=== PATIENT | male | born 1965 | race African-American/Black ===

== ENCOUNTER 2018-12-22 06:06 | Day surgery (SDC) | payer OTHER ==
[2018-12-22] MEDS ORDERED: NACL 0.9% 500 ML 500 ML IV SCH (07:00)
== END 2018-12-22 06:45 | disposition home or self-care (01) ==
LOC: CATHLABREC 06:06
PROVIDERS: ATTEND Internal Medicine
DX: I20.8 Other forms of angina pectoris (principal); Z53.8 Procedure and treatment not carried out for other reasons; Z95.1 Presence of aortocoronary bypass graft
CPT/HCPCS: J7040

== ENCOUNTER 2019-06-13 13:08 | Inpatient (IN) | payer OTHER ==
--- NOTE | 2019-06-13 13:27 | Event Note ---
ED Screening Note Date of service: 06/13/19 Time: 13:24 ED Screening Note: 53 y o male with PMH of HTN and Hyperlipidimia with presents feeling of left sided weakness and difficulty with his speaking 7 am this morning, pt states he went to work but not feeling better. This initial assessment/diagnostic orders/clinical plan/treatment(s) is/are subject to change based on patients health status, clinical progression and re- assessment by fellow clinical providers in the ED. Further treatment and workup at subsequent clinical providers discretion. Patient/guardian urged not to elope from the ED as their condition may be serious if not clinically assessed and managed. Initial orders include: protocol ordered CT scan
[2019-06-13 13:55] LABS: Basophils # (Auto) 0.1 K/mm3 (0.0-0.1); Eosinophils # (Auto) 0.2 K/mm3 (0.0-0.4); Eosinophils % (Auto) 2.1 % (0.0-4.3); Monocytes % (Auto) 10.4 % (0.0-7.3)
[2019-06-13 14:08] LABS: INR 0.87 (0.87-1.13)
[2019-06-13 14:09] LABS: Thrombin Time 16.5 Sec. (15.1-19.6)
[2019-06-13 14:11] LABS: Creatine Kinase MB 2.1 ng/mL (0.0-4.0)
[2019-06-13] MEDS ORDERED: NITROSTAT SL PRN (14:19)
[2019-06-13] MEDS ORDERED: PEPCID IV ONE (14:19)
--- NOTE | 2019-06-13 14:20 | Emergency Department Report ---
ED Neuro Deficit HPI - General Chief Complaint: Neuro Symptoms/Deficit Stated Complaint: (L) SIDE NUMB Time Seen by Provider: 06/13/19 13:23 Source: patient, RN notes reviewed, old records reviewed Mode of arrival: Ambulatory Limitations: No Limitations - History of Present Illness Initial Comments: Primary care DrHumaira: Patient states he does not have one Cardiology: Dr. Karan Osorio Past medical history: Aneurysm of ascending order, coronary artery disease, exertional angina, obesity, CABG 2, stented coronary artery, high cholesterol, hypertension The patient is a 53-year-old gentleman. The patient is not known to this provider previously. The patient presents to the ER today with primary complaint of not speaking right. He reports waking up, and noticing that he was not able to pronounce words slightly he normally does. This is painless, not associated with neck or tongue discomfort. It is constant, does not radiate anywhere. He also endorses intermittent left-sided numbness, which has been present for years, ever since repair of a AAA/CABG. He denies recent trauma. He also complains of nonspecific shortness of breath. This is chronic, painless, and worsens with physical exertion and decreases with rest. There is no posterior leg pain. There is no posterior leg swelling. The patient endorses epigastric burning. This is not sharp or tearing, and it does not radiate to the back, arms or neck. The epigastric burning is intermittent, does not radiate anywhere, and he believes it started today, but he is not sure. -: This morning Location: speech, left arm, left leg Presenting Symptoms: Present: Unable to Speak Clearly. Absent: Sudden, Severe Headache, Blurred/Loss of Vision, Facial Droop/Numbness, Altered Mental Status History of same: No Place: home Severity: mild Quality: numb Improves With: none Worsens With: none On Anticoagulants: Yes - Related Data Allergies/Adverse Reactions: Allergies Allergy/AdvReac Type Severity Reaction Status Date / Time No Known Allergies Allergy Unverified 12/22/18 06:07 ED Review of Systems ROS: Stated complaint: (L) SIDE NUMB Other details as noted in HPI Constitutional: denies: fever Eyes: denies: eye discharge ENT: denies: epistaxis Respiratory: shortness of breath. denies: cough Cardiovascular: denies: syncope Gastrointestinal: denies: nausea, vomiting Genitourinary: denies: dysuria Musculoskeletal: denies: back pain Skin: denies: lesions Neurological: numbness, paresthesias ED Past Medical Hx - Past Medical History Previous Medical History?: Yes Additional medical history: "heart problem" - Surgical History Past Surgical History?: Yes Hx Open Heart Surgery: Yes - Social History Smoking Status: Former Smoker Substance Use Type: Alcohol ED Neuro Physical Exam - General Limitations: No Limitations General appearance: alert, in no apparent distress Suspected Stroke: No - Head Head exam: Present: atraumatic, normocephalic - Eye Eye exam: Present: normal appearance, EOMI, other (visual acuity intact to finger counting and color perception at close distance.). Absent: nystagmus - ENT ENT exam: Present: normal exam, normal orophraynx, mucous membranes moist, normal external ear exam - Neck Neck exam: Present: normal inspection, full ROM. Absent: tenderness, meningismus - Respiratory Respiratory exam: Present: normal lung sounds bilaterally. Absent: respiratory distress - Cardiovascular Cardiovascular Exam: Present: regular rate, normal rhythm, normal heart sounds. Absent: bradycardia, tachycardia, irregular rhythm, systolic murmur, diastolic murmur, rubs, gallop - GI/Abdominal GI/Abdominal exam: Present: soft. Absent: distended, tenderness, guarding, rebound, rigid, pulsatile mass - Rectal Rectal exam: Present: deferred - Extremities Exam Extremities exam: Present: normal inspection, full ROM, other (2+ pulses noted in the bilateral upper, lower extremities. Compartments soft. No long bony tenderness. The pelvis is stable.). Absent: pedal edema, joint swelling, calf tenderness - Back Exam Back exam: Present: normal inspection, full ROM. Absent: tenderness, CVA tenderness (R), CVA tenderness (L), paraspinal tenderness, vertebral tenderness - Neurological Exam Neurological exam: Present: alert, oriented X3, normal gait, other (Extraocular movements intact. Tongue midline. No facial droop. Facial sensation intact to light touch in the V1, V2, V3 distribution bilaterally. 5 and 5 strength in 4 extremities.. Sensation is intact to light touch in 4 extremities.). Absent: motor sensory deficit - NIHSS Assessment Interval: Baseline 1a. Level of Consciousness: alert/keenly responsive 1b. LOC Questions: answers both correctly 1c. LOC Commands: performs tasks correctly 2. Best Gaze: normal 3. Visual: no visual loss 4. Facial Palsy: normal symmetrical movement 5b. Motor Arm Right: no drift 5a. Motor Arm Left: no drift 6a. Motor Leg Left: no drift 6b. Motor Leg Right: no drift 7. Limb Ataxia: absent 8. Sensory: normal 9. Best Language: no aphasia 10. Dysarthria: mild/moderate dysarthria 11. Extinction/Inattention: no abnormality Total Score: 1 Stroke Severity: Minor Stroke - Psychiatric Psychiatric exam: Present: normal affect, normal mood - Skin Skin exam: Present: warm, dry, intact, normal color. Absent: rash ED Course Vital Signs 06/13/19 06/13/19 06/13/19 13:18 14:04 15:30 Temperature 98.4 F 98.6 F Pulse Rate 69 66 80 Respiratory 18 16 16 Rate Blood Pressure 195/85 Blood Pressure 156/77 167/84 [Left] O2 Sat by Pulse 98 100 100 Oximetry - Reevaluation(s) Reevaluation #1: 06/13/19 16:36 CT scan of the brain suggests a subacute basal ganglia infarct without evidence of hemorrhage. Hospital physician is informed. - Lab Data Result diagrams: 06/13/19 13:30 06/13/19 14:54 Lab Results 06/13/19 06/13/19 06/13/19 Range/Units 13:30 13:30 13:30 WBC 9.7 (4.5-11.0) K/mm3 RBC 7.34 H (3.65-5.03) M/mm3 Hgb 15.7 H (11.8-15.2) gm/dl Hct 50.2 H (35.5-45.6) % MCV 68 L (84-94) fl MCH 21 L (28-32) pg MCHC 31 L (32-34) % RDW 17.3 H (13.2-15.2) % Plt Count 210 (140-440) K/mm3 Lymph % (Auto) 23.5 (13.4-35.0) % [place] % (Auto) 10.4 H (0.0-7.3) % Eos % (Auto) 2.1 (0.0-4.3) % Baso % (Auto) 0.7 (0.0-1.8) % Lymph # 2.3 (1.2-5.4) K/mm3 [place] # 1.0 H (0.0-0.8) K/mm3 Eos # 0.2 (0.0-0.4) K/mm3 Baso # 0.1 (0.0-0.1) K/mm3 Seg Neutrophils % 64.0 (40.0-70.0) % Seg Neutrophils # 6.2 (1.8-7.7) K/mm3 PT 11.6 L (12.2-14.9) Sec. INR 0.87 (0.87-1.13) APTT 29.0 (24.2-36.6) Sec. Thrombin Time 16.5 (15.1-19.6) Sec. Sodium (137-145) mmol/L Potassium (3.6-5.0) mmol/L Chloride (98-107) mmol/L Carbon Dioxide (22-30) mmol/L Anion Gap mmol/L BUN (9-20) mg/dL Creatinine (0.8-1.5) mg/dL Estimated GFR ml/min BUN/Creatinine Ratio % Glucose (75-100) mg/dL Calcium (8.4-10.2) mg/dL Total Creatine Kinase 112 (55-170) units/L CK-MB (CK-2) 2.1 (0.0-4.0) ng/mL CK-MB (CK-2) Rel Index 1.8 (0-4) Troponin T < 0.010 (0.00-0.029) ng/mL 06/13/19 Range/Units 14:54 WBC (4.5-11.0) K/mm3 RBC (3.65-5.03) M/mm3 Hgb (11.8-15.2) gm/dl Hct (35.5-45.6) % MCV (84-94) fl MCH (28-32) pg MCHC (32-34) % RDW (13.2-15.2) % Plt Count (140-440) K/mm3 Lymph % (Auto) (13.4-35.0) % [place] % (Auto) (0.0-7.3) % Eos % (Auto) (0.0-4.3) % Baso % (Auto) (0.0-1.8) % Lymph # (1.2-5.4) K/mm3 [place] # (0.0-0.8) K/mm3 Eos # (0.0-0.4) K/mm3 Baso # (0.0-0.1) K/mm3 Seg Neutrophils % (40.0-70.0) % Seg Neutrophils # (1.8-7.7) K/mm3 PT (12.2-14.9) Sec. INR (0.87-1.13) APTT (24.2-36.6) Sec. Thrombin Time (15.1-19.6) Sec. Sodium 138 (137-145) mmol/L Potassium 4.2 (3.6-5.0) mmol/L Chloride 96.2 L (98-107) mmol/L Carbon Dioxide 29 (22-30) mmol/L Anion Gap 17 mmol/L BUN 24 H (9-20) mg/dL Creatinine 1.2 (0.8-1.5) mg/dL Estimated GFR > 60 ml/min BUN/Creatinine Ratio 20 % Glucose 296 H (75-100) mg/dL Calcium 9.8 (8.4-10.2) mg/dL Total Creatine Kinase (55-170) units/L CK-MB (CK-2) (0.0-4.0) ng/mL CK-MB (CK-2) Rel Index (0-4) Troponin T (0.00-0.029) ng/mL - EKG Data -: EKG Interpreted by Id EKG shows normal: sinus rhythm Rate: normal 06/13/19 16:14 This is a sinus rhythm, with frequent sinus positive, premature atrial con tractions, normal axis, QTC prolonged, high left ventricular voltage, the EKG is abnormal, the EKG is not consistent with ST elevation myocardial infarction. - Radiology Data Radiology results: pending, report reviewed, image reviewed X-ray of the chest interpreted as negative for acute disease. Noncontrast CT scan of the brain: - Medical Decision Making Differential diagnosis, including but not limited to: Stroke, cervical radic ulopathy, GERD, gastritis, hiatal hernia, acute coronary syndrome, pneumonia, obstructive sleep apnea Assessment and plan: 53-year-old gentleman with multiple complaints Complaint #1, dysarthria: Present upon waking up. GCS of 15. NIH score of 1. Not a TPA candidate given low NIH score, and waking up with symptoms, last known well time last night. Seen and evaluated by consulting stroke neurology, Dr. Chau, who agrees with the above, and agrees with plan for admission. Exam and history are not consistent with large vessel occlusion, therefore, emergent angiogram of the head and neck is not indicated at this time. Complaint #2, left upper, left lower extremity numbness. No motor deficits present on exam. This is chronic since reported history of cardiac surgery. No indication of epidural compression syndrome at this time. This can be managed expectantly, and does not require emergent workup or evaluation. In the ER, has appropriate strength, sensation, and downgoing reflexes. Complaint #3, epigastric burning and shortness of breath, shortness of breath reportedly chronic, epigastric burning is new Troponin is negative. EKG abnormal, but not consistent with ST elevation myocardial infarction. Not tachycardic, not hypoxic, no pulmonary embolism or DVT risk factors, low risk by well's criteria. Has equal pulses in the upper, lower extremities, x-ray of the chest is reviewed and appreciated, this is unlikely to be aortic disease. May benefit from inpatient cardiac risk stratification. Patient's symptoms will be treated. The case is presented to the Hospital physician, Dr. Silviano Mccord , who accepts to his service - Core Measures Measure Exclusions: not indicated - Thrombolytic Inclusion/Exclusion Thrombolytic Exclusion Criteria: Symptom Onset > 3 Hours Critical care attestation.: If time is entered above; I have spent that time in minutes in the direct care of this critically ill patient, excluding procedure time. ED Disposition Clinical Impression: Dysarthria, Left sided numbness, Dyspnea, Epigastric burning sensation Disposition: OP ADMIT IP TO THIS HOSP Is pt being admited?: Yes Does the pt Need Aspirin: Yes Condition: Good Referrals: PRIMARY CARE, [Primary Care Provider] - 3-5 Days
[2019-06-13 14:25] LABS: Hematocrit 50.2 % (35.5-45.6); Hemoglobin 15.7 gm/dl (11.8-15.2); Mean Corpuscular HGB Conc 31 % (32-34); Mean Corpuscular Volume 68 fl (84-94); Platelet Count 210 K/mm3 (140-440); Red Blood Count 7.34 M/mm3 (3.65-5.03); Red Cell Distribution Width 17.3 % (13.2-15.2)
[2019-06-13 14:26] LABS: Basophils % (Auto) 0.7 % (0.0-1.8); Lymphocytes # (Auto) 2.3 K/mm3 (1.2-5.4); Lymphocytes % (Auto) 23.5 % (13.4-35.0)
--- NOTE | 2019-06-13 14:40 | Emergency Department Report ---
ED Neuro Deficit HPI - General Chief Complaint: Neuro Symptoms/Deficit Stated Complaint: (L) SIDE NUMB Time Seen by Provider: 06/13/19 13:23 Source: patient Mode of arrival: Ambulatory Limitations: No Limitations - History of Present Illness Initial Comments: [facility] Date of service: 06/13/2019 Impression: 53 year old male who presents with difficulty speaking and left side numbness. Some symptoms are chronic and dysarthria was new upon waking today. Symptoms may be due to stroke vs metabolic or infectious encephalopathy Not a tpa candidate due to: LSN more than 4.5 hours prior arrival Does not meet LVO screening criteria (no aphasia, neglect, gaze deviation, dense hemiparesis, or visual field deficits on exam), therefore advanced imaging is not indicated. Comments: Door Time: 13:08 [employer] contacted: 14:21 [employer] at bedside: 14:26 NIHSS assessment start time (time the consultation begins): Last known well time (LKW): 06/12/2019 Recommendations: Start antiplatelet if no obvious contraindication Stroke protocol admission/ orderset suggested with placement on stroke floor tele monitoring Bedside swallow evaluation HOB less than 30 degrees IV Fluid hydration with NS Euglycemia avoid hyperthermia, PRN acetaminophen dvt ppx Consider inpatient neurology consultation Discussed with ED MD Please call with questions CC: Stroke alert History of Present Illness Patient is a53 year old male with an extensive cardiac history who presented to the hospital because he woke up with dysarthria. Patient also has chronic numbness on the left. Patient was also complaining of shortness of breath as well. 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 Cranial Nerves: Pupils: Equal round and reactive to light Extraocular movements: Intact in all cardinal gaze Ptosis: Absent Visual mccoy: Intact to finger counting Facial sensation: Intact to pin and light touch Facial movements: Intact and symmetric Motor Exam: No drift Tremor/Abnormal Movements: Resting tremor: Absent Intention tremor: Absent Postural tremor: Absent Sensory Exam: Light touch: Intact Pinprick: Intact Coordination: Finger to nose: Intact Heel to jacob: Intact NIHSS score: 1 Medical Decision Making: - Extensive number of diagnosis or management options are considered above. - Extensive amount of complex data reviewed. - High risk of complication and/or morbidity or mortality are associated with differential diagnostic considerations above. - There may be Uncertain outcome and increased probability of prolonged functional impairment or high probability of severe prolonged functional impairment associated with some of these differential diagnosis. Medical Data Reviewed: 1.Data reviewed include clinical labs, radiology,Medical Tests; 2.Tests results discussed w/performing or interpreting physician; 3.Obtaining/reviewing old medical records; 4.Obtaining case history from another source; 5.Independent review of image, tracing or specimen. Patient was informed the Neurology Consult would happen via TeleHealth consult by way of interactive audio and video telecommunications and consented to receiving care in this manner. - Related Data Allergies/Adverse Reactions: Allergies Allergy/AdvReac Type Severity Reaction Status Date / Time No Known Allergies Allergy Unverified 12/22/18 06:07 ED Review of Systems ROS: Stated complaint: (L) SIDE NUMB Other details as noted in HPI ED Past Medical Hx - Past Medical History Previous Medical History?: Yes Additional medical history: "heart problem" - Surgical History Past Surgical History?: Yes Hx Open Heart Surgery: Yes - Social History Smoking Status: Former Smoker Substance Use Type: Alcohol ED Neuro Physical Exam - General Limitations: No Limitations Suspected Stroke: No - NIHSS Assessment Interval: Baseline 1a. Level of Consciousness: alert/keenly responsive 1b. LOC Questions: answers both correctly 1c. LOC Commands: performs tasks correctly 2. Best Gaze: normal 3. Visual: no visual loss 4. Facial Palsy: normal symmetrical movement 5b. Motor Arm Right: no drift 5a. Motor Arm Left: no drift 6a. Motor Leg Left: no drift 6b. Motor Leg Right: no drift 7. Limb Ataxia: absent 8. Sensory: normal 9. Best Language: no aphasia 10. Dysarthria: mild/moderate dysarthria 11. Extinction/Inattention: no abnormality Total Score: 1 Stroke Severity: Minor Stroke ED Course Vital Signs 06/13/19 06/13/19 13:18 14:04 Temperature 98.4 F 98.6 F Pulse Rate 69 66 Respiratory 18 16 Rate Blood Pressure 195/85 Blood Pressure 156/77 [Left] O2 Sat by Pulse 98 100 Oximetry - Lab Data Result diagrams: 06/13/19 13:30 Lab Results 06/13/19 06/13/19 06/13/19 Range/Units 13:30 13:30 13:30 WBC 9.7 (4.5-11.0) K/mm3 RBC 7.34 H (3.65-5.03) M/mm3 Hgb 15.7 H (11.8-15.2) gm/dl Hct 50.2 H (35.5-45.6) % MCV 68 L (84-94) fl MCH 21 L (28-32) pg MCHC 31 L (32-34) % RDW 17.3 H (13.2-15.2) % Plt Count 210 (140-440) K/mm3 Lymph % (Auto) 23.5 (13.4-35.0) % [place] % (Auto) 10.4 H (0.0-7.3) % Eos % (Auto) 2.1 (0.0-4.3) % Baso % (Auto) 0.7 (0.0-1.8) % Lymph # 2.3 (1.2-5.4) K/mm3 [place] # 1.0 H (0.0-0.8) K/mm3 Eos # 0.2 (0.0-0.4) K/mm3 Baso # 0.1 (0.0-0.1) K/mm3 Seg Neutrophils % 64.0 (40.0-70.0) % Seg Neutrophils # 6.2 (1.8-7.7) K/mm3 PT 11.6 L (12.2-14.9) Sec. INR 0.87 (0.87-1.13) APTT 29.0 (24.2-36.6) Sec. Thrombin Time 16.5 (15.1-19.6) Sec. Total Creatine Kinase 112 (55-170) units/L CK-MB (CK-2) 2.1 (0.0-4.0) ng/mL CK-MB (CK-2) Rel Index 1.8 (0-4) Troponin T < 0.010 (0.00-0.029) ng/mL Critical care attestation.: If time is entered above; I have spent that time in minutes in the direct care of this critically ill patient, excluding procedure time. ED Disposition Clinical Impression: Dysarthria Disposition: OP ADMIT IP TO THIS HOSP Is pt being admited?: Yes Does the pt Need Aspirin: Yes Condition: Stable Referrals: PRIMARY CARE,MD [Primary Care Provider] - 3-5 Days
--- NOTE | 2019-06-13 15:24 | XRay Report ---
CHEST 1 VIEW 3:01 PM INDICATION / CLINICAL INFORMATION: Dyspnea. COMPARISON: 05/18/2012. FINDINGS: SUPPORT DEVICES: None. HEART / MEDIASTINUM: Median sternotomy. The heart size and pulmonary vasculature are normal. LUNGS / PLEURA: No significant pulmonary or pleural abnormality. No pneumothorax. ADDITIONAL FINDINGS: No significant additional findings. IMPRESSION: No acute findings. Signer Name: Rell Art MD Signed: 06/13/2019 3:20 PM Workstation Name: [id number]
[2019-06-13 15:25] LABS: BUN/Creatinine Ratio 20; Blood Urea Nitrogen 24 mg/dL (9-20); Calcium 9.8 mg/dL (8.4-10.2); Hemolysis Index 2
[2019-06-13] MEDS ORDERED: BABY ASPIRIN PO ONE (15:35)
--- NOTE | 2019-06-13 16:40 | History and Physical Report ---
History of Present Illness Date of examination: 06/13/19 Date of admission: 06/13/19 Chief complaint: Slurred speech since AM History of present illness: 53-year-old gentleman presents to the ER today with primary complaint of not speaking right. He reports waking up, and noticing that he was not able to pronounce words as he normally does. He also c/o of intermittent left-sided numbness, which has been present for years, ever since repair of a AAA/CABG. He denies recent trauma. He also complains of nonspecific shortness of breath. No chest pain.No orthopnea.No fever or chills.No recent travel. Past Medical History HTN CAD Surgical History Past Surgical History?: Yes Hx Open Heart Surgery: Yes Family History Htn Social History Smoking Status: Former Smoker Substance Use Type: Alcohol Review of Systems ROS: Stated complaint: (L) SIDE NUMB Other details as noted in HPI Constitutional: denies: fever Eyes: denies: eye discharge ENT: denies: epistaxis Respiratory: shortness of breath. denies: cough Cardiovascular: denies: syncope Gastrointestinal: denies: nausea, vomiting Genitourinary: denies: dysuria Musculoskeletal: denies: back pain Skin: denies: lesions Neurological: numbness, paresthesias Medications and Allergies Allergies Allergy/AdvReac Type Severity Reaction Status Date / Time No Known Allergies Allergy Unverified 12/22/18 06:07 Home Medications Medication Instructions Recorded Confirmed Last Taken Type AtorvaSTATin [Lipitor] 80 mg PO QHS 06/13/19 06/13/19 Unknown History Olmesartan/Hydrochlorothiazide 20 tab PO ONCE 06/13/19 06/13/19 Unknown History [Olmesartan-Hctz 40-12.5 mg Tab] Active Meds: Active Medications Nitroglycerin (Nitrostat) 0.4 mg SL .Q5MIN PRN PRN Reason: Chest Pain Exam - Constitutional Vitals: Temp Pulse Resp BP Pulse Ox 98.6 F 80 16 167/84 100 06/13/19 14:04 06/13/19 15:30 06/13/19 15:30 06/13/19 15:30 06/13/19 15:30 Results - Labs CBC & Chem 7: 06/13/19 13:30 06/13/19 14:54 Labs: Laboratory Last Values WBC 9.7 K/mm3 (4.5-11.0) 06/13/19 13:30 RBC 7.34 M/mm3 (3.65-5.03) H 06/13/19 13:30 Hgb 15.7 gm/dl (11.8-15.2) H 06/13/19 13:30 Hct 50.2 % (35.5-45.6) H 06/13/19 13:30 MCV 68 fl (84-94) L 06/13/19 13:30 MCH 21 pg (28-32) L 06/13/19 13:30 MCHC 31 % (32-34) L 06/13/19 13:30 RDW 17.3 % (13.2-15.2) H 06/13/19 13:30 Plt Count 210 K/mm3 (140-440) 06/13/19 13:30 Lymph % (Auto) 23.5 % (13.4-35.0) 06/13/19 13:30 [place] % (Auto) 10.4 % (0.0-7.3) H 06/13/19 13:30 Eos % (Auto) 2.1 % (0.0-4.3) 06/13/19 13:30 Baso % (Auto) 0.7 % (0.0-1.8) 06/13/19 13:30 Lymph # 2.3 K/mm3 (1.2-5.4) 06/13/19 13:30 [place] # 1.0 K/mm3 (0.0-0.8) H 06/13/19 13:30 Eos # 0.2 K/mm3 (0.0-0.4) 06/13/19 13:30 Baso # 0.1 K/mm3 (0.0-0.1) 06/13/19 13:30 Seg Neutrophils % 64.0 % (40.0-70.0) 06/13/19 13:30 Seg Neutrophils # 6.2 K/mm3 (1.8-7.7) 06/13/19 13:30 PT 11.6 Sec. (12.2-14.9) L 06/13/19 13:30 INR 0.87 (0.87-1.13) 06/13/19 13:30 APTT 29.0 Sec. (24.2-36.6) 06/13/19 13:30 16.5 Sec. (15.1-19.6) 06/13/19 13:30 Sodium 138 mmol/L (137-145) 06/13/19 14:54 Potassium 4.2 mmol/L (3.6-5.0) 06/13/19 14:54 Chloride 96.2 mmol/L (98-107) L 06/13/19 14:54 Carbon Dioxide 29 mmol/L (22-30) 06/13/19 14:54 17 mmol/L 06/13/19 14:54 BUN 24 mg/dL (9-20) H 06/13/19 14:54 1.2 mg/dL (0.8-1.5) 06/13/19 14:54 Estimated GFR > 60 ml/min 06/13/19 14:54 20 % 06/13/19 14:54 Glucose 296 mg/dL (75-100) H 06/13/19 14:54 Calcium 9.8 mg/dL (8.4-10.2) 06/13/19 14:54 112 units/L (55-170) 06/13/19 13:30 CK-MB (CK-2) 2.1 ng/mL (0.0-4.0) 06/13/19 13:30 CK-MB (CK-2) Rel Index 1.8 (0-4) 06/13/19 13:30 < 0.010 ng/mL (0.00-0.029) 06/13/19 13:30 Short CBC 06/13/19 Range/Units 13:30 WBC 9.7 (4.5-11.0) K/mm3 Hgb 15.7 H (11.8-15.2) gm/dl Hct 50.2 H (35.5-45.6) % Plt Count 210 (140-440) K/mm3 BMP 06/13/19 14:54 Sodium 138 Potassium 4.2 Chloride 96.2 L Carbon Dioxide 29 BUN 24 H Creatinine 1.2 Glucose 296 H Calcium 9.8 Cardiac Enzymes 06/13/19 Range/Units 13:30 Total Creatine Kinase 112 (55-170) units/L CK-MB (CK-2) 2.1 (0.0-4.0) ng/mL Troponin T < 0.010 (0.00-0.029) ng/mL - Imaging and Cardiology EKG: report reviewed (NSR with frequent pvc's) Chest x-ray: report reviewed Imaging and Cardiology: CT HEAD IMPRESSION: Subacute infarction in the right basal ganglia; I do not see hemorrhagic changes. I have discussed these findings with ER physician at 3:30 [place] daylight savings time. Assessment and Plan Advance Directives: Yes (FC) VTE prophylaxis?: Chemical Plan of care discussed with patient/family: Yes - Patient Problems (1) Acute CVA (cerebrovascular accident) Current Visit: Yes Status: Acute Plan to address problem: CVA versus TIA CVA w/u Neuro consult MRI/MRA/REcho/CDS Statins/aSa (2) HTN (hypertension) Current Visit: Yes Status: Chronic Qualifiers: Hypertension type: essential hypertension Qualified Code(s): I10 - Essential (primary) hypertension Plan to address problem: VCont Benicar/substitute (3) CAD (coronary artery disease) Current Visit: Yes Status: Chronic Qualifiers: Coronary Disease-Associated Artery/Lesion type: bypass graft [place] vs. transplanted heart: [place] heart Plan to address problem: On ASA (4) DVT prophylaxis Current Visit: Yes Status: Acute Plan to address problem: On Ovenox and GI prophylaxis
--- NOTE | 2019-06-13 17:03 | Cat Scan Report ---
CT head/brain wo con INDICATION: Stroke symptoms. TECHNIQUE: Routine CT head without contrast. Sagittal and coronal reformatted images were obtained. A ll CT scans at this location are performed using CT dose reduction for ALARA by means of automated ex posure control. COMPARISON: None. FINDINGS: BRAIN / INTRACRANIAL CONTENTS: I do not see hemorrhage (parenchymal, subarachnoid, epidural or subdur al) or hemorrhagic lesion. Lacune is seen in the right basal ganglia extending from the right putamen towards the body of right caudate. This infarction has slightly higher CT density than CSF. I am carmita ble to determine the age but this appears to be recent. I do not see hemorrhagic changes. I do not se e CT findings to suggest acute territorial infarction. In these images, I do not see findings to sugg est torsion of internal carotid artery terminus middle cerebral artery. Few of the middle cerebral ar robby territory from the right sylvian fissure has increased CT density compared to the left side. No acute hemorrhage, mass effect, midline shift, hydrocephalus, or acute, large territorial infarct. No chronic infarct or focal atrophy. Normal brain volume and ventricular/sulcal size for age. No sign ificant white matter abnormality. CRANIOCERVICAL JUNCTION: No significant abnormality. ORBITS: No significant abnormality of visualized orbits. SINUSES / MASTOIDS: No significant abnormality of the visualized paranasal sinuses or mastoid air nicolasa ls. ADDITIONAL FINDINGS: None. IMPRESSION: Subacute infarction in the right basal ganglia; I do not see hemorrhagic changes. I have discussed these findings with ER physician at 3:30 Central daylight savings time. Signer Name: Melania Davis MD Signed: 06/13/2019 4:58 PM Workstation Name: [id number]
[2019-06-14] MEDS ORDERED: REGLAN IV PRN (06:39)
[2019-06-14] MEDS ORDERED: TYLENOL PO PRN (06:39)
[2019-06-14] MEDS ORDERED: MILK OF MAGNESIA PO PRN (06:39)
[2019-06-14] MEDS ORDERED: DILAUDID IV PRN (06:39)
[2019-06-14] MEDS ORDERED: ZOFRAN IV PRN (06:39)
[2019-06-14] MEDS ORDERED: SODIUM CHLORIDE FLUSH SYRINGE 10 ML IV PRN ×2 (06:39→06:42)
[2019-06-14] MEDS ORDERED: PERCOCET 5/325 PO PRN (06:39)
[2019-06-14] MEDS ORDERED: OLMESARTAN PO SCH (06:45)
[2019-06-14] MEDS ORDERED: HYDROCHLOROTHIAZIDE PO SCH (06:45)
[2019-06-14 07:39] LABS: Basophils % (Auto) 0.5 % (0.0-1.8); Eosinophils # (Auto) 0.2 K/mm3 (0.0-0.4); Hematocrit 47.5 % (35.5-45.6); Hemoglobin 15.1 gm/dl (11.8-15.2); Lymphocytes # (Auto) 2.3 K/mm3 (1.2-5.4); Lymphocytes % (Auto) 30.6 % (13.4-35.0); Mean Corpuscular HGB Conc 32 % (32-34); Monocytes # (Auto) 0.8 K/mm3 (0.0-0.8); Monocytes % (Auto) 10.5 % (0.0-7.3); Platelet Count 190 K/mm3 (140-440); Red Blood Count 6.93 M/mm3 (3.65-5.03); Red Cell Distribution Width 16.4 % (13.2-15.2)
[2019-06-14 07:51] LABS: Mean Corpuscular Volume 69 fl (84-94)
[2019-06-14 08:01] LABS: Alanine Aminotransferase 27 units/L (7-56); Albumin 3.5 g/dL (3.9-5); BUN/Creatinine Ratio 19; Blood Urea Nitrogen 23 mg/dL (9-20); Calcium 9.2 mg/dL (8.4-10.2); Hemolysis Index 9
--- NOTE | 2019-06-14 08:09 | Progress Note ---
Assessment and Plan Assessment and plan: Patient is a 53 yo man with a history of hypertension, AAA, dyslipidemia and CAD s/p CABG and PCI who presented to [facility] ED with left sided weakness/numbness and dyarthria. Teleneurologist used and wrote "Not a tpa candidate due to: LSN more than 4.5 hours prior arrival, Does not meet LVO screening criteria (no aphasia, neglect, gaze deviation, dense hemiparesis, or visual field deficits on exam), therefore advanced imaging is not indicated." * CT HEAD IMPRESSION: Subacute infarction in the right basal ganglia; I do not see hemorrhagic changes. Acute CVA (cerebrovascular accident) Neuro consult MRI/MRA/Echo/Us carotid Treat with Statins/aSa HTN (hypertension) VCont Benicar/substitute CAD (coronary artery disease) On ASA New onset DM, A1c 13.3 treat with ssi, counseling DVT prophylaxis On lovenox and GI prophylaxis History Interval history: Patient was seen and examined. Follow-up on current diagnosis of CVA with dysart hria. No overnight events reported to me. Patient denies any chest pain, shortness breath, nausea/vomiting or severe headaches. Imaging, nursing note, chart, labs and old chart reviewed. Discussed with patient. Hospitalist Physical - Physical exam Narrative exam: Gen: WDWN, NAD, Awake, Alert, Orientated HEENT: NCAT, EOMI, PERRL, OP Clear Neck: supple, no adenopathy, no thyromegaly, no JVD CVS/Heart: RRR, normal S1S2, pulses present bilaterally Chest/Lungs: CTA B, Symmetrical chest expansion, good air entry bilaterally GI/Abdomen: soft, NTND, good bowel sounds, no guarding or rebound /Bladder: no suprapubic tenderness, no CVA or paraspinal tenderness Extermity/Skin: no c/c/e, no obvious rash MSK: FROM x 4 Neuro: CN 2-12 grossly intact, dysarthria Psych: calm - Constitutional Vitals: Temp Pulse Resp BP Pulse Ox 98.7 F 64 20 109/56 86 06/14/19 04:05 06/13/19 23:50 06/14/19 04:05 06/14/19 04:05 06/14/19 04:05 Results - Labs CBC & Chem 7: 06/14/19 06:49 06/14/19 06:49 Labs: Laboratory Last Values WBC 7.6 K/mm3 (4.5-11.0) 06/14/19 06:49 RBC 6.93 M/mm3 (3.65-5.03) H 06/14/19 06:49 Hgb 15.1 gm/dl (11.8-15.2) 06/14/19 06:49 Hct 47.5 % (35.5-45.6) H 06/14/19 06:49 MCV 69 fl (84-94) L 06/14/19 06:49 MCH 22 pg (28-32) L 06/14/19 06:49 MCHC 32 % (32-34) 06/14/19 06:49 RDW 16.4 % (13.2-15.2) H 06/14/19 06:49 Plt Count 190 K/mm3 (140-440) 06/14/19 06:49 Lymph % (Auto) 30.6 % (13.4-35.0) 06/14/19 06:49 Hamilton % (Auto) 10.5 % (0.0-7.3) H 06/14/19 06:49 Eos % (Auto) 3.0 % (0.0-4.3) 06/14/19 06:49 Baso % (Auto) 0.5 % (0.0-1.8) 06/14/19 06:49 Lymph # 2.3 K/mm3 (1.2-5.4) 06/14/19 06:49 Hamilton # 0.8 K/mm3 (0.0-0.8) 06/14/19 06:49 Eos # 0.2 K/mm3 (0.0-0.4) 06/14/19 06:49 Baso # 0.0 K/mm3 (0.0-0.1) 06/14/19 06:49 Seg Neutrophils % 55.4 % (40.0-70.0) 06/14/19 06:49 Seg Neutrophils # 4.2 K/mm3 (1.8-7.7) 06/14/19 06:49 PT 11.6 Sec. (12.2-14.9) L 06/13/19 13:30 INR 0.87 (0.87-1.13) 06/13/19 13:30 APTT 29.0 Sec. (24.2-36.6) 06/13/19 13:30 16.5 Sec. (15.1-19.6) 06/13/19 13:30 Sodium 135 mmol/L (137-145) L 06/14/19 06:49 Potassium 3.6 mmol/L (3.6-5.0) 06/14/19 06:49 Chloride 95.3 mmol/L (98-107) L 06/14/19 06:49 Carbon Dioxide 26 mmol/L (22-30) 06/14/19 06:49 17 mmol/L 06/14/19 06:49 BUN 23 mg/dL (9-20) H 06/14/19 06:49 1.2 mg/dL (0.8-1.5) 06/14/19 06:49 Estimated GFR > 60 ml/min 06/14/19 06:49 19 % 06/14/19 06:49 Glucose 227 mg/dL (75-100) H 06/14/19 06:49 13.3 % (4-6) H 06/14/19 06:49 Calcium 9.2 mg/dL (8.4-10.2) 06/14/19 06:49 0.50 mg/dL (0.1-1.2) 06/14/19 06:49 AST 21 units/L (5-40) 06/14/19 06:49 ALT 27 units/L (7-56) 06/14/19 06:49 61 units/L (35-129) 06/14/19 06:49 112 units/L (55-170) 06/13/19 13:30 CK-MB (CK-2) 2.1 ng/mL (0.0-4.0) 06/13/19 13:30 CK-MB (CK-2) Rel Index 1.8 (0-4) 06/13/19 13:30 < 0.010 ng/mL (0.00-0.029) 06/13/19 13:30 7.4 g/dL (6.3-8.2) 06/14/19 06:49 3.5 g/dL (3.9-5) L 06/14/19 06:49 0.9 % 06/14/19 06:49 Active Medications - Current Medications Current Medications: Generic Name Dose Route Start Last Admin Trade Name Freq PRN Reason Stop Dose Admin Acetaminophen 650 mg 06/14/19 06:39 Tylenol PO Q4H PRN Pain MILD(1-3)/Fever >100.5/BARNES Aspirin 325 mg 06/14/19 10:00 Aspirin PO QDAY [facility] Atorvastatin Calcium 40 mg 06/14/19 22:00 Lipitor PO QHS [facility] Enoxaparin Sodium 40 mg 06/14/19 22:00 Lovenox SUB-Q QDAY@2200 [facility] Hydrochlorothiazide 12.5 mg 06/14/19 10:00 Hctz PO QDAY [facility] Hydromorphone HCl 0.5 mg 06/14/19 06:39 Dilaudid IV Q3H PRN Pain , Severe (7-10) Insulin Human Lispro 0 unit 06/14/19 07:30 Humalog SUB-Q [facility] Protocol Losartan Potassium 50 mg 06/14/19 10:00 Cozaar PO QDAY [facility] Magnesium Hydroxide 30 ml 06/14/19 06:39 Milk Of Magnesia PO Q4H PRN Constipation Metoclopramide HCl 10 mg 06/14/19 06:39 Reglan IV Q6H PRN Nausea And Vomiting Nitroglycerin 0.4 mg 06/13/19 14:19 Nitrostat SL .Q5MIN PRN Chest Pain Ondansetron HCl 4 mg 06/14/19 06:39 Zofran IV Q8H PRN Nausea And Vomiting Oxycodone/Acetaminophen 1 tab 06/14/19 06:39 Percocet 5/325 PO Q6H PRN Pain, Moderate (4-6) Sodium Chloride 10 ml 06/14/19 10:00 Sodium Chloride Flush Syringe 10 Ml IV BID [place] Sodium Chloride 10 ml 06/14/19 06:39 Sodium Chloride Flush Syringe 10 Ml IV PRN PRN LINE FLUSH Sodium Chloride 10 ml 06/14/19 06:42 Sodium Chloride Flush Syringe 10 Ml IV PRN PRN LINE FLUSH
--- NOTE | 2019-06-14 10:55 | Vascular Lab Report ---
"DUPLEX DOPPLER ULTRASOUND CAROTID, BILATERAL INDICATION: stroke. FINDINGS: RIGHT CAROTID: Small amount of atherosclerotic plaque. Right ICA peak systolic velocity: 66 cm/sec. Right Vertebral Artery: Antegrade flow. LEFT CAROTID: Small amount of atherosclerotic plaque. Left ICA peak systolic velocity: 71 cm/sec. Left Vertebral Artery: Antegrade flow. IMPRESSION: 1. Right Internal Carotid Artery: Less than 50% diameter stenosis. 2. Left Internal Carotid Artery: Less than 50% diameter stenosis. Velocity criteria are extrapolated from diameter data as defined by the Society of Radiologists in Ul trasound Consensus Conference, Radiology 2003; 229;340-346. Degree of Stenosis (%) || ICA PSV (cm/sec) || Plaque estimate (%) || ICA/CCA PSV Ratio Normal <125 None <2.0 <50 <125 <50 <2.0 50-69 125-230 50 2.0-4.0 70 but less than 100 >230 50 >4.0 Near occlusion High, low, or none visible variable Total occlusion None visible; no lumen N/A Signer Name: Calixto Dominguez MD Signed: 06/14/2019 10:51 AM Workstation Name: [id number]"
--- NOTE | 2019-06-14 11:18 | Consultation ---
History of Present Illness Consult date: 06/14/19 Reason for Consult: Possible stroke Chief complaint: Slurred speech, left sided weakness History of present illness: Patient is a 53-year-old man with a history of hypertension, hyperlipidemia, CAD status post CABG, AAA, diabetes mellitus. He is ended yesterday with onset of slurred speech and left-sided weakness which began upon waking up yesterday morning. He was last known normal the night before going to sleep. Patient was seen by telemetry neurology in the ER, and was not felt to be a TPA candidate as he was outside the window. Patient also had shortness of breath which was noted yesterday. This admission, was noted to have hemoglobin A1c of 13.3, and was newly diagnosed with diabetes mellitus. Past History Past Medical History: other (hypertension, hyperlipidemia, CAD status post CABG, AAA, diabetes mellitus) Past Surgical History: CABG Social history: lives with family, other (previous smoker, occasional call use) Family history: no significant family history Medications and Allergies Allergies Allergy/AdvReac Type Severity Reaction Status Date / Time No Known Allergies Allergy Unverified 12/22/18 06:07 Home Medications Medication Instructions Recorded Confirmed Last Taken Type AtorvaSTATin [Lipitor] 80 mg PO QHS 06/13/19 06/13/19 Unknown History Olmesartan/Hydrochlorothiazide 20 tab PO ONCE 06/13/19 06/13/19 Unknown History [Olmesartan-Hctz 40-12.5 mg Tab] Active Meds: Active Medications Acetaminophen (Tylenol) 650 mg PO Q4H PRN PRN Reason: Pain MILD(1-3)/Fever >100.5/BARNES Aspirin (Aspirin) 325 mg PO QDAY [place] Atorvastatin Calcium (Lipitor) 40 mg PO QHS [facility] Enoxaparin Sodium (Lovenox) 40 mg SUB-Q QDAY@2200 [place] Hydrochlorothiazide (Hctz) 12.5 mg PO QDAY [place] Hydromorphone HCl (Dilaudid) 0.5 mg IV Q3H PRN PRN Reason: Pain , Severe (7-10) Insulin Human Lispro (Humalog) 0 unit SUB-Q [facility] [place]; Protocol Losartan Potassium (Cozaar) 50 mg PO QDAY [place] Magnesium Hydroxide (Milk Of Magnesia) 30 ml PO Q4H PRN PRN Reason: Constipation Metoclopramide HCl (Reglan) 10 mg IV Q6H PRN PRN Reason: Nausea And Vomiting Nitroglycerin (Nitrostat) 0.4 mg SL .Q5MIN PRN PRN Reason: Chest Pain Ondansetron HCl (Zofran) 4 mg IV Q8H PRN PRN Reason: Nausea And Vomiting Oxycodone/Acetaminophen (Percocet 5/325) 1 tab PO Q6H PRN PRN Reason: Pain, Moderate (4-6) Sodium Chloride (Sodium Chloride Flush Syringe 10 Ml) 10 ml IV BID [place] Sodium Chloride (Sodium Chloride Flush Syringe 10 Ml) 10 ml IV PRN PRN PRN Reason: LINE FLUSH Review of Systems All systems: negative Cardiovascular: shortness of breath Respiratory: shortness of breath Neurological: weakness, change in speech Physical Examination - Vital Signs Vital Signs: Vital Signs Temp Pulse Resp BP Pulse Ox 98.4 F 69 18 195/85 98 06/13/19 13:18 06/13/19 13:18 06/13/19 13:18 06/13/19 13:18 06/13/19 13:18 - Constitutional General appearance: comfortable - EENT EENT: Present: ATNC, PERRL, mucous membranes moist, hearing intact, vision intact - Respiratory Respiratory: Present: lungs clear, normal breath sounds - Cardiovascular Cardiovascular: Present: regular rate, normal S1, normal S2 Extremities: Present: no peripheral edema bilatateraly, no clubbing, cyanosis - Gastrointestinal Gastrointestinal: Present: normoactive bowel sounds, soft, non-tender - Integumentary Integumentary: Present: normal - Neurologic Cranial nerve examination: PERRL, EOMI, VFF, V1/V2/V3 grossly intact, face symmetric, tongue midline, intact shoulder shrug Speech examination: other (mild dysarthria noted) Motor examination - right side: 5/5: biceps, triceps, wrist flexion, wrist extension, stand grinder, hip flexors, knee extensors, dorsiflexion, toe extension (EHL), plantarflexion Motor examination - left side: 4/5: biceps, triceps, wrist flexion, wrist extension, stand grinder, hip flexors, knee extensors, dorsiflexion, toe extension (EHL), plantarflexion Detailed sensory examination: intact, light touch Reflexes: 2+: ankle, bicep, knee, tricep Cerebellar examination: other (bilaterally intact to finger to nose and heel to jacob) - Musculoskeletal Musculoskeletal: Present: no fluid collection, no pain, normal range of motion - Psychiatric Psychiatric: Present: mood/affect appropriate - Level of Consciousness 1a. Level of Consciousness: alert/keenly responsive - LOC Questions 1b. LOC Questions: answers both correctly - LOC Command 1c. LOC Commands: performs tasks correctly - Best Gaze 2. Best Gaze: normal - Visual 3. Visual: no visual loss - Facial Palsy 4. Facial Palsy: normal symmetrical movement - Motor Arm 5a. Motor Arm Left: no drift 5b. Motor Arm Right: no drift - Motor Leg 6a. Motor Leg Left: no drift 6b. Motor Leg Right: no drift - Limb Ataxia 7. Limb Ataxia: absent - Sensory 8. Sensory: normal - Best Language 9. Best Language: no aphasia - Dysarthria 10. Dysarthria: mild/moderate dysarthria - Extinction and Inattention 11. Extinction/Inattention: no abnormality - Scoring Total Score: 1 Stroke Severity: Minor Stroke Results - Laboratory Findings CBC and BMP: 06/14/19 06:49 06/14/19 06:49 Abnormal Lab Findings: Abnormal Labs 06/13/19 06/13/19 06/13/19 13:30 13:30 14:54 RBC 7.34 H Hgb 15.7 H Hct 50.2 H MCV 68 L MCH 21 L MCHC 31 L RDW 17.3 H Grady % (Auto) 10.4 H Grady # 1.0 H PT 11.6 L Sodium Chloride 96.2 L BUN 24 H Glucose 296 H Hemoglobin A1c Albumin 06/14/19 06/14/19 06/14/19 06:49 06:49 06:49 RBC 6.93 H Hgb Hct 47.5 H MCV 69 L MCH 22 L MCHC RDW 16.4 H Grady % (Auto) 10.5 H Grady # PT Sodium 135 L Chloride 95.3 L BUN 23 H Glucose 227 H Hemoglobin A1c 13.3 H Albumin 3.5 L Assessment and Plan Patient is a 53-year-old man with a history of hypertension, hyperlipidemia, CAD status post CABG, AAA, diabetes mellitus, presents with slurred speech and left- sided weakness. According patient's clinical findings, it is likely that he has an acute ischemic stroke, as CT head showed evidence of a acute to subacute infarct in the right subcortical region. Plan: 1. Stroke: CT head shows acute to subacute right subcortical infarct MRI and MRA pending Heart of the ultrasound pending Echocardiogram pending, bubble study reportedly negative Continue patient on aspirin Continue patient on statin, LDL pending Hemoglobin A1c 13.3. PT/OT/ST - DVT Ppx: recommend lovenox Telemetry monitoring while in-house 2. HTN: - Recommend target normotension We'll continue to follow the patient. Lexx Nelson MD Neurology
[2019-06-14] MEDS: HumaLOG SUB-Q SCH ×4 (12:43→22:56)
[2019-06-14] MEDS: ASPIRIN PO SCH (13:07)
[2019-06-14] MEDS: COZAAR PO SCH (13:07)
[2019-06-14] MEDS: SODIUM CHLORIDE FLUSH SYRINGE 10 ML IV SCH ×2 (13:08→22:56)
[2019-06-14] MEDS: HCTZ PO SCH (13:08)
--- NOTE | 2019-06-14 14:45 | Magnetic Resonance Report ---
MRI BRAIN WITHOUT CONTRAST, MRA HEAD WITHOUT CONTRAST INDICATION / CLINICAL INFORMATION: Left-sided weakness. Stroke.. TECHNIQUE: Multiplanar, multi sequential MRI images of the brain. Routine MRA of the head is performed. 3-D/MIP reformats postprocessed. COMPARISON: None available. FINDINGS: MR BRAIN: BRAIN / INTRACRANIAL CONTENTS: There is an acute lacunar infarct in the right gangliocapsular region involving the right caudate body and right putamen as well as the right internal capsule. There is no other acute infarct. There is no associated hemorrhage or adverse mass effect. Brain parenchymal vol ume and ventricular size appears normal for age. There is no hydrocephalus, adverse mass effect, or e vidence of mass lesion. CRANIOCERVICAL JUNCTION: No significant abnormality. VASCULAR FLOW-VOIDS: No significant abnormality. ORBITS: No significant abnormality of visualized orbits. SINUSES / MASTOIDS: No significant abnormality of visualized sinuses and mastoid air cells. ADDITIONAL FINDINGS: None. MRA HEAD: Intracranial vertebral arteries: No significant abnormality. Basilar artery: No significant abnormality. Posterior cerebral arteries: There is origin of the right posterior cerebral artery. Intracranial internal carotid arteries: No significant abnormality. Anterior cerebral arteries: No significant abnormality. Middle cerebral arteries: No significant abnormality. Additional findings: None. IMPRESSION: 1. Acute lacunar infarct in the right gangliocapsular region without associated hemorrhage or signifi cant adverse mass effect. 2. No significant stenosis or large vessel occlusion of the intracranial arteries. Signer Name: Christos Lagunas MD Signed: 06/14/2019 2:41 PM Workstation Name: [id number]
[2019-06-14] MEDS ORDERED: LOVENOX SUB-Q SCH (22:00)
[2019-06-15 05:31] LABS: BUN/Creatinine Ratio 21; Blood Urea Nitrogen 25 mg/dL (9-20); Calcium 9.3 mg/dL (8.4-10.2); HDL Cholesterol 31 mg/dL (40-59); Hemolysis Index 81; LDL Cholesterol,Direct 138 mg/dL (50-130)
[2019-06-15 09:31] VITALS: BP 119/78
[2019-06-15] MEDS: COZAAR PO SCH (09:40)
[2019-06-15] MEDS: HumaLOG SUB-Q SCH (09:40)
[2019-06-15] MEDS: ASPIRIN PO SCH (09:40)
[2019-06-15] MEDS: SODIUM CHLORIDE FLUSH SYRINGE 10 ML IV SCH (09:41)
[2019-06-15] MEDS: HCTZ PO SCH (09:41)
--- NOTE | 2019-06-15 18:51 | Discharge Summary ---
Providers - Providers Date of Admission: 06/15/19 08:46 Date of discharge: 06/15/19 Attending physician: JANIE TEIXEIRA 06/13/19 14:17 Consult to Physician [CONS] Stat Comment: Consulting Provider: AMBAR SANTOYO Physician Instructions: Reason For Exam: cva 06/14/19 06:39 Consult to Physician [CONS] Routine Comment: Consulting Provider: GLORIA ESQUIVEL Physician Instructions: Reason For Exam: TIA vs CVA 06/14/19 06:42 Occupational Therapy Evaluate and Treat [CONS] Routine Comment: Reason For Exam: Neuro deficits Physical Therapy Evaluation and Treat [CONS] Routine Comment: Reason For Exam: Neuro deficits Primary care physician: [employer] Hospitalization Condition: Stable Hospital course: Patient is a 53 yo man with a history of hypertension, AAA, dyslipidemia and CAD s/p CABG and PCI who presented to [facility] ED with left sided weakness/numbness and dyarthria. Teleneurologist used and wrote "Not a tpa candidate due to: LSN more than 4.5 hours prior arrival, Does not meet LVO screening criteria (no aphasia, neglect, gaze deviation, dense hemiparesis, or visual field deficits on exam), therefore advanced imaging is not indicated." * CT HEAD IMPRESSION: Subacute infarction in the right basal ganglia; I do not see hemorrhagic changes. Discharge Diagnoses: Acute CVA (cerebrovascular accident) Dyslipidemia, new HTN (hypertension) CAD (coronary artery disease) New onset DM, A1c 13.3, counseling done for 15 minutes. I told him that will need DM meds for home, and he left without the scripts patient left with detail verbal instructions but left the scripts. I sat down with him and her mother and went over meds, what to expect and symptoms, et. al I called in scripts to [facility] Partha [phone], spoke with svetlana Wiggins, and then called and spoke with patient @[phone] Disposition: TO HOME OR SELFCARE Time spent for discharge: 35 minutes Core Measure Documentation - Palliative Care Palliative Care/ Comfort Measures: Not Applicable - Core Measures Any of the following diagnoses?: stroke - VTE Discharge Requirements Deep Vein Thrombosis/Pulmonary Embolism Present on Admission: No Has pt received <5 days of overlap therapy or INR<2.0: No Anticoagulant overlap therapy prescribed at discharge: No Contraindication No Overlap Therapy order at DC: Not Indicated - Stroke Discharge Requirements Statin for LDL = or >70 mg/dl on DC: Yes Anticoag for atrial fib/atrial flutter: Not Applicable Reason for no anticoag for AF/F on DC: Not Indicated Antithrombotic for ischemic stroke: Yes Exam - Physical Exam Narrative exam: Gen: WDWN, NAD, Awake, Alert, Orientated HEENT: NCAT, EOMI, PERRL, OP Clear Neck: supple, no adenopathy, no thyromegaly, no JVD CVS/Heart: RRR, normal S1S2, pulses present bilaterally Chest/Lungs: CTA B, Symmetrical chest expansion, good air entry bilaterally GI/Abdomen: soft, NTND, good bowel sounds, no guarding or rebound /Bladder: no suprapubic tenderness, no CVA or paraspinal tenderness Extermity/Skin: no c/c/e, no obvious rash MSK: FROM x 4 Neuro: CN 2-12 grossly intact except, dysarthria, facial droop, sensory and left sided hemiparesis Psych: calm - Constitutional Vitals: Temp Pulse Resp BP Pulse Ox 97.9 F 66 18 119/78 95 06/15/19 08:34 06/15/19 09:40 06/15/19 08:34 06/15/19 09:40 06/15/19 08:34 Plan Activity: no driving until cleared by PCP (he voiced understanding and agreement), other (no strenous activity unless cleared by PCP) Diet: low salt, diabetic Special Instructions: record daily BP diary, record blood sugar diary Additional Instructions: See Dr. Singh for holter monitor Follow up with: SABRINA CONWAY MD [Staff Physician] - 7 Days YURI KRISHNAN MD [Staff Physician] - 7 Days ROBE SINGH MD [Staff Physician] - 7 Days Prescriptions: AtorvaSTATin [Lipitor] 80 mg PO QHS #30 tab Aspirin [Aspirin BABY CHEW TAB] 81 mg PO QDAY #30 tab.chew glipiZIDE XL [Glucotrol Xl] 2.5 mg PO QAM #30 tab.er.24 Sitagliptin Phos/Metformin HCl [Janumet 50-500 mg Tablet] 1 each PO BID #60 tablet Clopidogrel [Plavix] 75 mg PO QDAY #30 tablet
== END 2019-06-15 12:00 | disposition home or self-care (01) | DRG 66 ==
LOC: ED 13:08 → 4A 15:35 → OBSVTOIN 06-15 08:46
PROVIDERS: ADMIT Internal Medicine; ATTEND Internal Medicine
DX: I63.9 Cerebral infarction, unspecified (principal); R47.1 Dysarthria and anarthria; I10 Essential (primary) hypertension; I71.4 Abdominal aortic aneurysm, without rupture; I25.10 Atherosclerotic heart disease of native coronary artery without angina pectoris; E78.5 Hyperlipidemia, unspecified; E11.9 Type 2 diabetes mellitus without complications; R47.81 Slurred speech; E66.9 Obesity, unspecified; Z68.29 Body mass index [BMI] 29.0-29.9, adult; Z95.1 Presence of aortocoronary bypass graft; Z71.89 Other specified counseling; Z79.899 Other long term (current) drug therapy; Z82.49 Family history of ischemic heart disease and other diseases of the circulatory system; Z72.89 Other problems related to lifestyle; Z95.5 Presence of coronary angioplasty implant and graft
CPT/HCPCS: 36415; 70450; 70544; 70551; 71045; 80048; 80053; 80061; 82550; 82553; 82962; 83036; 84484; 85025; 85610; 85670; 85730; 93005; 93010; 93306; 93880; 96374; G0378; A9270-GY; J1650; J1815